=== PATIENT | male | born 1955 | race Two or more races ===

== ENCOUNTER 2017-11-25 17:57 | Emergency (ER) | payer SELFPAY ==
[~2017-11-25] VITALS: Ht 172.7 cm; Wt 64.0 kg
[2017-11-25 18:26] VITALS: BP 129/74
== END 2017-11-25 22:00 | disposition left against medical advice (07) ==
LOC: ER 17:57
DX: R51 Headache (principal); Z53.21 Procedure and treatment not carried out due to patient leaving prior to being seen by health care provider